=== PATIENT | male | born 1990 | race Caucasian/White ===

== ENCOUNTER → 2024-11-02 | Outpatient (REF) | payer BC, OTHER ==
[2024-11-02 17:25] LABS: SEMEN APPEARANCE OPAQUE (OPAQUE)
[2024-11-02 17:26] LABS: SEMEN VISCOSITY LIQUID (LIQUID); SEMEN VOLUME 0.9 ml (2.0-5.0); WBC CONCENTRATION >1 M/ml (<=1 M/ml)
== END ==
LOC: M LAB REF 17:08
PROVIDERS: ATTEND Surgery
DX: Z30.2 Encounter for sterilization (principal)